=== PATIENT | female | born 1970 | race Caucasian/White ===

== ENCOUNTER 2018-01-26 09:42 | Emergency (ER) | payer BC ==
[~2018-01-26] VITALS: Ht 165.1 cm; Wt 95.0 kg
[~2018-01-26 09:42] MED LIST: DICL75 PO; LEVO.1 PO; ROBA750T3 PO
[2018-01-26 09:51] VITALS: BP 123/77; PULSE 92; RESP 16; TEMP 98; O2SAT 96
[2018-01-26] MEDS ORDERED: LEVO.1 PO (09:57)
[2018-01-26] MEDS ORDERED: ROBA750T PO (09:58)
[2018-01-26] MEDS ORDERED: ONDANSETRON HCL 4 MG/2 ML VIAL IV PUSH ONE ×2 (10:30→11:45)
[2018-01-26] MEDS ORDERED: SODIUM CHLOR 0.9% 1000 ML INJ 1,000 ML IV SCH (10:32)
--- NOTE | 2018-01-26 10:37 | PD ---
HPI Chief Complaint: GI Complaint Time Seen by Provider: 10:30 Travel History International Travel<30 days: No Contact w/Intl Traveler<30days: No Traveled to known affect area: No History of Present Illness HPI Patient presents with severe nausea and upper abdominal pain acute in onset since this morning. States she awoke feeling quite well however after about an hour at work she had acute onset of nausea vomiting and upper abdominal pain. States she has had a severe cough with mild shortness of breath for approximately a week. States she fractured her ribs secondary to her cough. States she has taken some Zofran without benefit. Denies any blood per emesis. Reports normal stools. Denies . Patient reports history of coronary artery disease with MA at age 22, vaginal bleeding for several years with recommendations of ablation, anemia and thrombocytopenia with recommendations of transfusion which she has declined. Documented past medical history of hypothyroidism. Denies any specific chest pain at this time. PFSH Past Medical History Arthritis: No Asthma: No Autoimmune Disease: No Anxiety: No Depression: No Heart Rhythm Problems: No Cancer: No Cardiovascular Problems: No High Cholesterol: No Chemotherapy: No Chest Pain: No Congestive Heart Failure: No COPD: No Cerebrovascular Accident: No Diabetes: No Diminished Hearing: No Endocrine: Yes GERD: No Genitourinary: No Hiatal Hernia: No Immune Disorder: No Kidney Stones: No Musculoskeletal: No Neurologic: No Psychiatric: No Reproductive: No Respiratory: No Migraines: No Radiation Therapy: No Renal Failure: No Seizures: No Sickle Cell Disease: No Sleep Apnea: No Thyroid Disease: Yes Ulcer: No Tetanus Vaccination: < 5 Years Influenza Vaccination: No ?: Unknown Past Surgical History Abdominal Surgery: No AICD: No Arteriovenous Shunt: No Cardiac Surgery: No Section: Yes (1990) Ear Surgery: No Endocrine Surgery: No Eye Surgery: No Genitourinary Surgery: No Gynecologic Surgery: Yes (c-sect) Insulin Pump: No Joint Replacement: No Oral Surgery: No Pacemaker: No Thoracic Surgery: No Other Surgery: Yes Social History Alcohol Use: No Tobacco Use: No ("3-4 CIGARETTES A DAY,SMOKING ON & OFF FOR 10YRS") Substance Use: No Allergies-Medications (Allergen,Severity, Reaction): Coded Allergies: ofloxacin (Unverified Allergy, Severe, "COULDN'T BREATHE", 01/26/18) penicillin G (Unverified Allergy, Severe, "WELTS", 01/26/18) Reported Meds & Prescriptions Reported Meds & Active Scripts Active Reported Robaxin (Methocarbamol) 750 Mg Tab 1,500 Mg PO TID Synthroid (Levothyroxine Sodium) 100 Mcg Tab 100 Mcg PO DAILY Review of Systems General / Constitutional: No: Fever Eyes: No: Visual changes HENT: No: Headaches Cardiovascular: No: Chest Pain or Discomfort Respiratory: No: Shortness of Breath Gastrointestinal: Positive: Nausea, Vomiting, Abdominal Pain Genitourinary: No: Dysuria Musculoskeletal: No: Pain Skin: No Rash Neurologic: No: Weakness Psychiatric: No: Depression Endocrine: No: Polydipsia Hematologic/Lymphatic: No: Easy Bruising Physical Exam Narrative GENERAL: Well-nourished, well-developed patient. SKIN: Focused skin assessment warm/dry. HEAD: Normocephalic. EYES: No scleral icterus. No injection or drainage. NECK: Supple, trachea midline. No JVD or lymphadenopathy. CARDIOVASCULAR: Regular rate and rhythm without murmurs, gallops, or rubs. RESPIRATORY: Breath sounds equal bilaterally. No accessory muscle use. GASTROINTESTINAL: Abdomen soft, diffusely tender bilateral upper quadrants, nondistended. MUSCULOSKELETAL: No cyanosis, or edema. BACK: Nontender without obvious deformity. No CVA tenderness. Data Data Last Documented VS Vital Signs Date Time Temp Pulse Resp B/P (MAP) Pulse Ox O2 Delivery O2 Flow Rate FiO2 01/26/18 10:52 98 Room Air 01/26/18 09:51 98.0 92 16 123/77 (92) Orders Orders Ondansetron Inj (Zofran Inj) (01/26/18 10:30) Complete Blood Count With Diff (01/26/18 10:32) Comprehensive Metabolic Panel (01/26/18 10:32) Lipase (01/26/18 10:32) Lactic Acid (01/26/18 10:32) Urinalysis - C+S If Indicated (01/26/18 10:32) Ct Abd/Pel W Iv Contrast(Rout) (01/26/18 10:32) Iv Access Insert/Monitor (01/26/18 10:32) Ecg Monitoring (01/26/18 10:32) Oximetry (01/26/18 10:32) Pantoprazole Inj (Protonix Inj) (01/26/18 10:45) Sodium Chlor 0.9% 1000 Ml Inj (Ns 1000 M (01/26/18 10:32) Sodium Chloride 0.9% Flush (Ns Flush) (01/26/18 10:45) Electrocardiogram (01/26/18 10:32) Dicyclomine Inj (Bentyl Inj) (01/26/18 10:45) Ckmb (Isoenzyme) Profile (01/26/18 10:32) Troponin I (01/26/18 10:32) Influenzae A/B Antigen (01/26/18 10:32) Chest, Single Ap (01/26/18 10:32) Promethazine Inj (Phenergan Inj) (01/26/18 10:45) Iohexol 350 Inj (Omnipaque 350 Inj) (01/26/18 11:14) Hydromorphone Pf Inj (Dilaudid Pf Inj) (01/26/18 11:45) Ondansetron Inj (Zofran Inj) (01/26/18 11:45) Hydromorphone Pf Inj (Dilaudid Pf Inj) (01/26/18 12:00) CKMB (01/26/18 11:30) CKMB% (01/26/18 11:30) Labs Laboratory Tests Test 01/26/18 11:30 01/26/18 12:03 White Blood Count 5.1 TH/MM3 Red Blood Count 4.22 MIL/MM3 Hemoglobin 11.4 GM/DL Hematocrit 35.1 % Mean Corpuscular Volume 83.2 FL Mean Corpuscular Hemoglobin 27.1 PG Mean Corpuscular Hemoglobin Concent 32.5 % Red Cell Distribution Width 19.0 % Platelet Count 235 TH/MM3 Mean Platelet Volume 9.0 FL Neutrophils (%) (Auto) 71.6 % Lymphocytes (%) (Auto) 20.7 % Monocytes (%) (Auto) 5.8 % Eosinophils (%) (Auto) 1.4 % Basophils (%) (Auto) 0.5 % Neutrophils # (Auto) 3.7 TH/MM3 Lymphocytes # (Auto) 1.0 TH/MM3 Monocytes # (Auto) 0.3 TH/MM3 Eosinophils # (Auto) 0.1 TH/MM3 Basophils # (Auto) 0.0 TH/MM3 CBC Comment DIFF FINAL Differential Comment Blood Urea Nitrogen 11 MG/DL Creatinine 0.60 MG/DL Random Glucose 96 MG/DL Total Protein 7.9 GM/DL Albumin 3.6 GM/DL Calcium Level 8.3 MG/DL Alkaline Phosphatase 80 U/L Aspartate Amino Transf (AST/SGOT) 22 U/L Alanine Aminotransferase (ALT/SGPT) 24 U/L Total Bilirubin 0.2 MG/DL Sodium Level 137 MEQ/L Potassium Level 3.8 MEQ/L Chloride Level 105 MEQ/L Carbon Dioxide Level 23.0 MEQ/L Anion Gap 9 MEQ/L Estimat Glomerular Filtration Rate 106 ML/MIN Total Creatine Kinase 117 U/L Creatine Kinase MB 0.8 NG/ML Troponin I LESS THAN 0.02 NG/ML Lipase 103 U/L Lactic Acid Level 1.0 mmol/L [facility] Medical Decision Making Medical Screen Exam Complete: Yes Emergency Medical Condition: Yes Differential Diagnosis Gastritis, nausea vomiting, small bowel obstruction, pancreatitis Narrative Course Assessment plan discussed with patient at bedside. EKG with sinus rhythm rate of 60, no ST segment elevations or depression. Patient reports she is unable to provide urine. Labs overall are within normal limits, cardiac enzymes are negative. Patient resting comfortably without nausea or vomiting. Last 72 hours Impressions Chest X-Ray 01/26/18 1032 Signed Impressions: Service Date/Time: Friday, January 26, 2018 10:47 - CONCLUSION: No acute cardiac pulmonary disease. There is no visualized rib fracture on this single view exam. Claus Montenegro MD Abdomen/Pelvis CT 01/26/18 1032 Signed Impressions: Service Date/Time: Friday, January 26, 2018 10:55 - CONCLUSION: 1. Moderate size right ovarian cyst. 2. Mild prominence of the uterine endometrium. A tampon is present. 3. Low attenuation mass in the inferior right lobe of the liver which is indeterminant but likely represents a cavernous hemangioma given the appearance. This could be confirmed with an outpatient abdomen MRI.. Claus Montenegro MD Diagnosis Primary Impression: Abdominal pain Qualified Codes: R10.13 - Epigastric pain Additional Impression: Nausea & vomiting Qualified Codes: R11.2 - Nausea with vomiting, unspecified Patient Instructions: General Instructions Additional Instructions: Encouraged a bland high-fiber brat diet, encourage fluids, antiemetic as needed. Follow-up with PCP. Return to emerge from with any onset of new symptoms. Med/Other Pt SpecificInfo: Prescription(s) given Scripts Promethazine Supp (Phenergan Supp) 25 Mg Supp 25 MG RECTAL Q6H Y for NAUSEA OR VOMITING, #10 SUPP 0 Refills Prov: Gerry Mendez MD 01/26/18 Disposition: 01 DISCHARGE HOME Condition: Good Gerry Mendez MD Jan 26, 2018 10:37
[2018-01-26] MEDS ORDERED: SODIUM CHLORIDE 0.9% FLUSH 10 ML FLUSH IV FLUSH PRN (10:45)
[2018-01-26] MEDS ORDERED: PANTOPRAZOLE SODIUM 40 MG VIAL IVP ONE (10:45)
[2018-01-26] MEDS ORDERED: DICYCLOMINE HCL 20 MG/2 ML VIAL IM ONE (10:45)
[2018-01-26] MEDS ORDERED: PROMETHAZINE INJ 25 MG/ML VIAL IM ONE (10:45)
[2018-01-26 10:52] VITALS: O2SAT 98
--- NOTE | 2018-01-26 11:03 | RADRPT ---
EXAM DATE/TIME: 01/26/2018 10:47 [facility] COMPARISON: CHEST SINGLE AP, February 11, 2014, 17:05. INDICATIONS : Cough, short of breath, chest pains, states has right side rib fractures from coughing, was seen at [facility] MEDICAL HISTORY : None. SURGICAL HISTORY : None. ENCOUNTER: Initial ACUITY: 1 week PAIN SCORE: 5/10 LOCATION: Bilateral chest FINDINGS: A single view of the chest demonstrates the lungs to be symmetrically aerated without evidence of mas s, infiltrate or effusion. The cardiomediastinal contours are unremarkable. Osseous structures are intact. CONCLUSION: No acute cardiac pulmonary disease. There is no visualized rib fracture on this singl e view exam. Claus Montenegro MD on January 26, 2018 at 11:00 Board Certified Radiologist. This report was verified electronically.
[2018-01-26] MEDS ORDERED: IOHEXOL 350 MG/ML 10 ML VIAL (for RAD DIAG) IVCONTRAST ONE (11:14)
--- NOTE | 2018-01-26 11:22 | RADRPT ---
EXAM DATE/TIME: 01/26/2018 10:55 [facility] COMPARISON: No previous studies available for comparison. INDICATIONS : RUQ and LLQ abdominal pain, nausea, dizziness. IV CONTRAST: 75 cc Omnipaque 350 (iohexol) IV ORAL CONTRAST: No oral contrast ingested. RADIATION DOSE: 21.32 CTDIvol (mGy) MEDICAL HISTORY : Thyroid disease, possible right rib fx from coughing. SURGICAL HISTORY : None. ENCOUNTER: Initial ACUITY: 1 day PAIN SCALE: 5/10 LOCATION: Left lower quadrant TECHNIQUE: Volumetric scanning of the abdomen and pelvis was performed. Using automated exposure control and ad justment of the mA and/or kV according to patient size, radiation dose was kept as low as reasonably achievable to obtain optimal diagnostic quality images. DICOM format image data is available electro nically for review and comparison. FINDINGS: LOWER LUNGS: The visualized lower lungs are clear. LIVER: Homogeneous density with an irregular hypoechoic mass inferior right lobe of the liver with areas of peripheral enhancement. This measures up to 2.9 cm in greatest diameter. There is no dilation of the biliary tree. No calcified gallstones. SPLEEN: Normal size without lesion. PANCREAS: Within normal limits. KIDNEYS: Normal in size and shape. There is no solid mass, stone or hydronephrosis. There are parapelvic cyst s. ADRENAL GLANDS: Within normal limits. VASCULAR: There is no aortic aneurysm. BOWEL/MESENTERY: The stomach, small bowel, and colon demonstrate no acute abnormality. There is no free intraperitone al air or fluid. ABDOMINAL WALL: Within normal limits. RETROPERITONEUM: There is no lymphadenopathy. BLADDER: No wall thickening or mass. REPRODUCTIVE: The endometrium is mildly prominent. A tampon is present. There is a benign cyst in right ovary measu ring 2.9 cm and 21 Hounsfield units in density.. INGUINAL: There is no lymphadenopathy or hernia. MUSCULOSKELETAL: Within normal limits for patient age. CONCLUSION: 1. Moderate size right ovarian cyst. 2. Mild prominence of the uterine endometrium. A tampon is present. 3. Low attenuation mass in the inferior right lobe of the liver which is indeterminant but likely rep resents a cavernous hemangioma given the appearance. This could be confirmed with an outpatient abdom en MRI.. Claus Montenegro MD on January 26, 2018 at 11:14 Board Certified Radiologist. This report was verified electronically.
[2018-01-26 11:33] LABS: AUTOMATED NEUTROPHIL # 3.7 TH/MM3 (1.8-7.7); BASOPHIL % 0.5 % (0.0-2.0); EOSINOPHIL # 0.1 TH/MM3 (0-0.4); EOSINOPHIL % 1.4 % (0.0-4.0); HEMATOCRIT 35.1 % (35.0-46.0); HEMOGLOBIN 11.4 GM/DL (11.6-15.3); LYMPH % 20.7 % (9.0-44.0); MEAN CELL VOLUME 83.2 FL (80.0-100.0); MEAN CORPUSCULAR HEMOGLOBIN 27.1 PG (27.0-34.0); MEAN CORPUSCULAR HGB CONC 32.5 % (32.0-36.0); MONO % 5.8 % (0.0-8.0); MONOCYTE # 0.3 TH/MM3 (0-0.9); NEUT % 71.6 % (16.0-70.0); PLATELET COUNT 235 TH/MM3 (150-450); RED BLOOD COUNT 4.22 MIL/MM3 (4.00-5.30); WHITE BLOOD COUNT 5.1 TH/MM3 (4.0-11.0)
[2018-01-26 11:44] LABS: CHLORIDE 105 MEQ/L (98-107); SODIUM (NA) 137 MEQ/L (136-145)
[2018-01-26] MEDS ORDERED: HYDROmorphone HCL PF 1 MG/ML VIAL IV PUSH ONE (11:45)
[2018-01-26 11:47] LABS: CALCIUM 8.3 MG/DL (8.5-10.1)
[2018-01-26 11:48] LABS: ALBUMIN 3.6 GM/DL (3.4-5.0); BLOOD UREA NITROGEN 11 MG/DL (7-18); GLUCOSE,RANDOM 96 MG/DL (74-106)
[2018-01-26 11:51] LABS: ALT (GPT) 24 U/L (10-53); AST (GOT) 22 U/L (15-37); GLOMERULAR FILTRATION RATE 106 ML/MIN (>89)
[2018-01-26 11:52] LABS: TOTAL PROTEIN 7.9 GM/DL (6.4-8.2)
[2018-01-26 11:54] LABS: ALKALINE PHOSPHATASE 80 U/L (45-117); TOTAL BILIRUBIN ADULT 0.2 MG/DL (0.2-1.0)
[2018-01-26 11:56] LABS: TROPONIN I LESS THAN 0.02 NG/ML (0.02-0.05)
[2018-01-26] MEDS ORDERED: HYDROmorphone HCL PF 2 MG/ML VIAL IV PUSH ONE (12:00)
[2018-01-26] MEDS ORDERED: PROM1SUP7 RECTAL (13:43)
--- NOTE | 2018-01-26 14:02 | EKG ---
Date Performed: 01/26/2018 Time Performed: 10:44:07 PTAGE: 47 years EKG: Sinus rhythm INCOMPLETE RIGHT BUNDLE BRANCH BLOCK BORDERLINE ECG PREVIOUS TRACING : 02/11/2014 23.16 Since the previous tracing, no significant change noted DOCTOR: David Perez Interpretating Date/Time 01/26/2018 14:01:16
[2018-01-26 14:07] LABS: BILIRUBIN, URINE NEG (NEG); BLOOD, URINE NEG (NEG); GLUCOSE,URINE NEG (NEG); KETONE, URINE 15 mg/dL (NEG); NITRITE,URINE NEG (NEG); URINE COLOR YELLOW (YELLW/STRAW); URINE LEUKOCYTE ESTERASE NEG (NEG)
[2018-01-26 14:12] LABS: AMORPHOUS SEDIMENT, URINE FEW; RBC, URINE 0-3 /hpf (0-3); SQUAMOUS EPITHELIAL CELL URINE 0-5 /hpf (0-5)
[2018-01-26] MEDS ORDERED: PROM25TA10 PO (14:30)
== END 2018-01-26 14:44 | disposition home or self-care (01) ==
LOC: PHED 09:42
DX: R10.13 Epigastric pain (principal); R11.2 Nausea with vomiting, unspecified; N83.201 Unspecified ovarian cyst, right side; R16.0 Hepatomegaly, not elsewhere classified; I45.10 Unspecified right bundle-branch block; E07.9 Disorder of thyroid, unspecified; F17.210 Nicotine dependence, cigarettes, uncomplicated; Z79.899 Other long term (current) drug therapy; Z88.0 Allergy status to penicillin
CPT/HCPCS: 71045; 74177; 80053; 81001; 82550; 82552; 83605; 83690; 84484; 85025; 93005; 96361; 96372; 96374; 96375; 96376; 99285; C9113; J0500; J1170; J2405; J2550; J7030; Q9967